=== PATIENT | female | born 1960 | race Two or more races ===

== ENCOUNTER 2019-03-18 09:22 | Day surgery (SDC) | payer OTHER ==
[~2019-03-18 09:22] MED LIST: BIOTIN10 MG PO; PROGESTERONE100 MG PO
== END 2019-03-18 18:15 | disposition home or self-care (01) ==
LOC: CIR.AMB 09:22
DX: K64.8 Other hemorrhoids (principal); K64.4 Residual hemorrhoidal skin tags